=== PATIENT | male | born 1935 | race Caucasian/White ===

== ENCOUNTER 2017-11-01 11:57 | Inpatient (IN) | payer MEDICARE ==
[~2017-11-01] VITALS: Ht 180.3 cm; Wt 75.8 kg
[~2017-11-01 11:57] MED LIST: ATEN100T PO; CAPT50TA3 PO; DIGO50SO2 PO; DILT240C93 PO; FURO20I IM; METF500T4 PO; WARF5 PO
[2017-11-01] MEDS ORDERED: FURO20 PO (12:15)
[2017-11-01] MEDS ORDERED: DIGO125T PO (12:15)
[2017-11-01 12:37] LABS: GLUCOSE,POINT OF CARE 200 MG/DL (70-110)
[2017-11-01] MEDS ORDERED: DILTIAZEM HCL 5 MG/ML 5 ML VIAL IVP ONE (13:00)
[2017-11-01 13:02] LABS: BASOPHILS # (AUTO) 0.07 K/uL (0.00-0.20); EOSINOPHILS # (AUTO) 0.13 K/uL (0.00-0.70); EOSINOPHILS % (AUTO) 1.72 % (1.0-6.0); HEMATOCRIT 39.1 % (41-53); HEMOGLOBIN 12.8 g/dL (13.5-17.5); LYMPHOCYTES # (AUTO) 1.1 K/uL (1.0-4.8); MEAN CORPUSCULAR HEMOGLOBIN 29.4 pg (26.0-34.0); MEAN CORPUSCULAR HGB CONC 32.8 G/dL (31.0-37.0); MEAN CORPUSCULAR VOLUME 90 fL (80-100); MONOCYTES # (AUTO) 0.8 K/uL (0.1-1.0); MONOCYTES % (AUTO) 10.2 % (2.0-9.0); NEUTROPHILS # (AUTO) 5.5 K/uL (1.8-7.7); NEUTROPHILS % (AUTO) 72.1 % (40.0-70.0); PLATELET COUNT (AUTO) 484 K/uL (150-450); RED BLOOD CELL COUNT(AUTO) 4.37 MIL/uL (4.50-5.90); RED CELL DISTRIBUTION WIDTH 16.4 % (11.5-14.5)
[2017-11-01] MEDS ORDERED: COLC0.6T67 PO (13:03)
[2017-11-01] MEDS ORDERED: LISI-662 PO (13:03)
[2017-11-01] MEDS ORDERED: METF500T4 PO (13:03)
[2017-11-01] MEDS ORDERED: VITAD1000 PO (13:03)
[2017-11-01] MEDS ORDERED: CARV3 PO (13:03)
[2017-11-01 13:04] LABS: ANION GAP 6 mmol/L (8-16); CALCIUM, TOTAL 9.1 mg/dL (8.8-10.5); CARBON DIOXIDE 29 mmol/L (22-29); CHLORIDE 101 mmol/L (98-107); CREATININE 1.38 mg/dL (0.60-1.30); GLOMERULAR FILTR. RATE CALC 49 mL/min (>60); GLUCOSE,RANDOM 213 mg/dL (70-110); SODIUM SERUM 136 mmol/L (136-145); UREA NITROGEN, BLOOD 27 mg/dL (7-18)
[2017-11-01 13:10] LABS: INR 3.6 (0.9-1.1)
[2017-11-01 13:18] LABS: ALANINE AMINOTRANSFERASE 32 U/L (12-78); ALBUMIN 3.8 g/dL (3.4-5.0); ALKALINE PHOSPHATASE 127 U/L (46-116); ASPARTATE AMINOTRANSFERASE 29 U/L (15-37); BILIRUBIN,TOTAL 0.7 mg/dL (0.1-1.0); DIGOXIN < 0.20 ng/mL (0.90-2.00); TOTAL PROTEIN, SERUM 7.3 g/dL (6.4-8.2)
[2017-11-01 13:23] LABS: B-TYPE NATRIURETIC PEPTIDE 907 pg/mL (0-100)
[2017-11-01] MEDS ORDERED: FUROSEMIDE 20 MG/2 ML VIAL IVP ONE ×2 (13:45→19:15)
[2017-11-01] MEDS ORDERED: 0.9% SODIUM CHLORIDE 10 ML SYRINGE IVP PRN (14:15)
[2017-11-01] MEDS ORDERED: ACETAMINOPHEN 325 MG TABLET PO PRN (14:15)
[2017-11-01 17:13] VITALS: BP 153/86
[2017-11-01] MEDS ORDERED: WARFARIN SODIUM 5 MG TABLET PO SCH (18:15)
[2017-11-01] MEDS: MetFORMIN HCL 500 MG TABLET PO SCH (18:39)
[2017-11-01] MEDS ORDERED: DEXTROSE 50%-WATER 25 GM/50 ML SYRINGE IVP PRN (19:15)
[2017-11-01 19:36] VITALS: BP 137/91
[2017-11-01] MEDS: CARVEDILOL 3.125 MG TABLET PO SCH (20:25)
[2017-11-01 23:27] VITALS: BP 140/93
[2017-11-02] MEDS ORDERED: AMIODARONE HCL 360 MG in DEXTROSE 5%-WATER 242.8 ML IV ONE ×2 (02:15→03:00)
[2017-11-02] MEDS ORDERED: AMIODARONE HCL 150 MG in DEXTROSE 5%-WATER 97 ML IV ONE (02:45)
[2017-11-02 04:24] VITALS: BP 136/89
[2017-11-02] MEDS: INSULIN ASPART 100 UNITS/ML SQ PRN ×2 (06:24→12:30)
[2017-11-02 07:11] VITALS: BP 118/71
[2017-11-02 07:31] LABS: INR 3.5 (0.9-1.1); PROTHROMBIN TIME 37.1 SEC (9.4-11.6)
[2017-11-02 07:41] LABS: BASOPHILS # (AUTO) 0.05 K/uL (0.00-0.20); BASOPHILS % (AUTO) 0.5 % (0.0-2.0); EOSINOPHILS # (AUTO) 0.03 K/uL (0.00-0.70); EOSINOPHILS % (AUTO) 0.28 % (1.0-6.0); HEMATOCRIT 35.4 % (41-53); LYMPHOCYTES # (AUTO) 0.9 K/uL (1.0-4.8); LYMPHOCYTES % (AUTO) 8.8 % (22.0-44.0); MEAN CORPUSCULAR HEMOGLOBIN 29.4 pg (26.0-34.0); MEAN CORPUSCULAR HGB CONC 33.8 G/dL (31.0-37.0); MEAN CORPUSCULAR VOLUME 87 fL (80-100); MONOCYTES # (AUTO) 0.7 K/uL (0.1-1.0); MONOCYTES % (AUTO) 7.2 % (2.0-9.0); NEUTROPHILS # (AUTO) 8.6 K/uL (1.8-7.7); NEUTROPHILS % (AUTO) 83.3 % (40.0-70.0); PLATELET COUNT (AUTO) 411 K/uL (150-450); RED BLOOD CELL COUNT(AUTO) 4.07 MIL/uL (4.50-5.90)
[2017-11-02] MEDS ORDERED: AMIODARONE HCL 540 MG in DEXTROSE 5%-WATER 239.2 ML IV ONE ×2 (08:15→09:00)
[2017-11-02] MEDS: CARVEDILOL 3.125 MG TABLET PO SCH ×2 (08:22→20:25)
[2017-11-02] MEDS: LISINOPRIL 20 MG TABLET PO SCH (08:22)
[2017-11-02] MEDS: FUROSEMIDE 40 MG/4 ML VIAL IVP SCH ×2 (08:22→20:25)
[2017-11-02] MEDS: CHOLECALCIFEROL (VIT D3) 1,000 UNITS TABLET PO SCH (08:23)
[2017-11-02] MEDS: COLCHICINE 0.6 MG TABLET PO SCH (08:23)
[2017-11-02] MEDS: MetFORMIN HCL 500 MG TABLET PO SCH ×2 (08:23→18:00)
[2017-11-02] MEDS: DILTIAZEM HCL CD 240 MG ER CAPSULE PO SCH (08:26)
[2017-11-02 08:32] LABS: ALBUMIN 3.3 g/dL (3.4-5.0); BILIRUBIN,TOTAL 1.1 mg/dL (0.1-1.0); CALCIUM, TOTAL 8.5 mg/dL (8.8-10.5); CREATININE 1.34 mg/dL (0.60-1.30); TOTAL PROTEIN, SERUM 5.7 g/dL (6.4-8.2)
[2017-11-02 08:40] LABS: POTASSIUM 3.6 mmol/L (3.5-5.1)
[2017-11-02] MEDS ORDERED: FUROSEMIDE 20 MG TABLET PO SCH (09:00)
[2017-11-02 11:15] VITALS: BP 128/71
[2017-11-02] MEDS ORDERED: ACETAMINOPHEN 325 MG TABLET PO PRN (13:15)
[2017-11-02] MEDS ORDERED: PHYTONADIONE 10 MG/1 ML AMP SQ ONE (14:00)
[2017-11-02 15:14] VITALS: BP 126/79
[2017-11-02] MEDS ORDERED: WARFARIN SODIUM 5 MG TABLET PO SCH (17:00)
[2017-11-02 19:46] VITALS: BP 120/81
[2017-11-03 00:08] VITALS: BP 111/78
[2017-11-03] MEDS ORDERED: AMIODARONE HCL 750 MG in DEXTROSE 5%-WATER 485 ML IV SCH (02:11)
[2017-11-03 03:50] VITALS: BP 114/76
[2017-11-03] MEDS: AMIODARONE HCL 750 MG in DEXTROSE 5%-WATER 485 ML IV SCH (03:53)
[2017-11-03 07:01] LABS: INR 2.4 (0.9-1.1); PROTHROMBIN TIME 25.7 SEC (9.4-11.6)
[2017-11-03 07:06] VITALS: BP 129/76
[2017-11-03] MEDS: FUROSEMIDE 40 MG/4 ML VIAL IVP SCH ×2 (09:00)
[2017-11-03 10:02] LABS: GLUCOMETER DEV NAME(LOC) 5N 2R; GLUCOSE,POINT OF CARE 142 MG/DL (70-110)
[2017-11-03 10:03] LABS: GLUCOMETER DEV NAME(LOC) 5N 2R; GLUCOSE,POINT OF CARE 179 MG/DL (70-110)
[2017-11-03] MEDS ORDERED: PHYTONADIONE 10 MG/1 ML AMP SQ ONE (10:45)
[2017-11-03] MEDS: FUROSEMIDE 40 MG TABLET PO SCH ×2 (10:45→19:12)
[2017-11-03 10:49] VITALS: BP 126/86
[2017-11-03 11:16] LABS: CALCIUM, TOTAL 8.7 mg/dL (8.8-10.5); CREATININE 1.57 mg/dL (0.60-1.30); MAGNESIUM 1.4 mg/dL (1.80-2.40); POTASSIUM 3.1 mmol/L (3.5-5.1)
[2017-11-03] MEDS: DILTIAZEM HCL CD 240 MG ER CAPSULE PO SCH (11:54)
[2017-11-03] MEDS: PANTOPRAZOLE SODIUM 40 MG DR TABLET PO SCH (11:55)
[2017-11-03] MEDS: CHOLECALCIFEROL (VIT D3) 1,000 UNITS TABLET PO SCH (11:55)
[2017-11-03] MEDS: COLCHICINE 0.6 MG TABLET PO SCH (11:55)
[2017-11-03] MEDS: LISINOPRIL 20 MG TABLET PO SCH (11:55)
[2017-11-03] MEDS: CARVEDILOL 3.125 MG TABLET PO SCH ×2 (11:55→20:08)
[2017-11-03] MEDS: MetFORMIN HCL 500 MG TABLET PO SCH ×2 (11:56→17:50)
[2017-11-03] MEDS ORDERED: POTASSIUM CHLORIDE 20 MEQ ER TABLET PO ONE (12:30)
[2017-11-03] MEDS ORDERED: MAGNESIUM OXIDE 400 MG TABLET PO ONE (12:30)
[2017-11-03 15:25] VITALS: BP 128/94
[2017-11-03 17:33] LABS: GLUCOMETER DEV NAME(LOC) 5S 1L; GLUCOSE,POINT OF CARE 151 MG/DL (70-110)
[2017-11-03 17:33] LABS: GLUCOMETER DEV NAME(LOC) 5S 1L; GLUCOSE,POINT OF CARE 150 MG/DL (70-110)
[2017-11-03 17:33] LABS: GLUCOMETER DEV NAME(LOC) 5S 1L; GLUCOSE,POINT OF CARE 157 MG/DL (70-110)
[2017-11-03 17:33] LABS: GLUCOMETER DEV NAME(LOC) 5S 1L; GLUCOSE,POINT OF CARE 183 MG/DL (70-110)
[2017-11-03 17:33] LABS: GLUCOMETER DEV NAME(LOC) 5S 1L; GLUCOSE,POINT OF CARE 79 MG/DL (70-110)
[2017-11-03 17:34] LABS: GLUCOMETER DEV NAME(LOC) 5S 1L; GLUCOSE,POINT OF CARE 137 MG/DL (70-110)
[2017-11-03 18:02] LABS: GLUCOMETER DEV NAME(LOC) 5S 1L; GLUCOSE,POINT OF CARE 161 MG/DL (70-110)
[2017-11-03 20:07] VITALS: BP 131/82
[2017-11-04] VITALS (23 sets, daily range): BP systolic 114–160; BP diastolic 67–106
[2017-11-04] MEDS: AMIODARONE HCL 750 MG in DEXTROSE 5%-WATER 485 ML IV SCH (03:29)
[2017-11-04 07:22] LABS: INR 1.5 (0.9-1.1); PROTHROMBIN TIME 15.4 SEC (9.4-11.6)
[2017-11-04 07:24] LABS: MAGNESIUM 1.6 mg/dL (1.80-2.40); POTASSIUM 3.6 mmol/L (3.5-5.1)
[2017-11-04] MEDS ORDERED: SODIUM BICARBONATE 50 MEQ/50 ML VIAL ONE (08:46)
[2017-11-04] MEDS ORDERED: HEPARIN SODIUM 1000 UNITS/NS 1,000 ML ONE (08:46)
[2017-11-04] MEDS ORDERED: IOHEXOL 300 MG/ML 150 ML VIAL ONE (08:46)
[2017-11-04] MEDS ORDERED: LIDOCAINE HCL/PF 1% 30 ML VIAL ONE (08:46)
[2017-11-04] MEDS ORDERED: HEPARIN SODIUM 1000 UNITS/NS 1,000 ML IARTER ONE (09:54)
[2017-11-04] MEDS ORDERED: SODIUM CHLORIDE 0.9% 500 ML IV ONE (09:54)
[2017-11-04] MEDS ORDERED: IOHEXOL 300 MG/ML 150 ML VIAL IARTER ONE (10:00)
[2017-11-04] MEDS ORDERED: LIDOCAINE 1% 30 ML/SOD BICARB 8.4% 4 ML SQ ONE (10:00)
[2017-11-04] MEDS: CHOLECALCIFEROL (VIT D3) 1,000 UNITS TABLET PO SCH (11:27)
[2017-11-04] MEDS: LISINOPRIL 20 MG TABLET PO SCH (11:27)
[2017-11-04] MEDS: PANTOPRAZOLE SODIUM 40 MG DR TABLET PO SCH (11:27)
[2017-11-04] MEDS: COLCHICINE 0.6 MG TABLET PO SCH (11:28)
[2017-11-04] MEDS: INSULIN ASPART 100 UNITS/ML SQ PRN (17:56)
[2017-11-04 19:28] LABS: GLUCOMETER DEV NAME(LOC) 5N 2R; GLUCOSE,POINT OF CARE 195 MG/DL (70-110)
[2017-11-04 19:28] LABS: GLUCOMETER DEV NAME(LOC) 5N 2R; GLUCOSE,POINT OF CARE 170 MG/DL (70-110)
[2017-11-04 20:01] LABS: GLUCOMETER DEV NAME(LOC) 5S 1L; GLUCOSE,POINT OF CARE 211 MG/DL (70-110)
[2017-11-04 20:02] LABS: GLUCOMETER DEV NAME(LOC) 5S 1L; GLUCOSE,POINT OF CARE 224 MG/DL (70-110)
[2017-11-04 20:02] LABS: GLUCOMETER DEV NAME(LOC) 5S 1L; GLUCOSE,POINT OF CARE 167 MG/DL (70-110)
[2017-11-04] MEDS: FUROSEMIDE 40 MG/4 ML VIAL IVP SCH (20:36)
[2017-11-04] MEDS: METOPROLOL TARTRATE 50 MG TABLET PO SCH (20:36)
[2017-11-04] MEDS: TRAVOPROST-Z 0.004% 2.5 ML OPHTHALMIC SOLUTION OU SCH (20:36)
[2017-11-04] MEDS: DORZOLAMIDE/TIMOLOL 2-0.5% [22.3-6.8MG/ML] 10 ML OPHTHALMIC SOLUTION OU SCH (21:00)
[2017-11-05 04:57] VITALS: BP 125/86
[2017-11-05] MEDS: AMIODARONE HCL 750 MG in DEXTROSE 5%-WATER 485 ML IV SCH (05:37)
[2017-11-05] MEDS: INSULIN ASPART 100 UNITS/ML SQ PRN ×4 (06:22→20:24)
[2017-11-05 07:36] VITALS: BP 138/84
[2017-11-05] MEDS: PANTOPRAZOLE SODIUM 40 MG DR TABLET PO SCH (08:23)
[2017-11-05] MEDS: FUROSEMIDE 40 MG/4 ML VIAL IVP SCH (08:23)
[2017-11-05] MEDS: LISINOPRIL 20 MG TABLET PO SCH (08:23)
[2017-11-05] MEDS: COLCHICINE 0.6 MG TABLET PO SCH (08:23)
[2017-11-05] MEDS: CHOLECALCIFEROL (VIT D3) 1,000 UNITS TABLET PO SCH (08:23)
[2017-11-05] MEDS: METOPROLOL TARTRATE 50 MG TABLET PO SCH ×2 (08:23→20:24)
[2017-11-05] MEDS: DORZOLAMIDE/TIMOLOL 2-0.5% [22.3-6.8MG/ML] 10 ML OPHTHALMIC SOLUTION OU SCH (08:44)
[2017-11-05] MEDS: COSOPT OU SCH ×2 (10:26→20:25)
[2017-11-05] MEDS ORDERED: DIGOXIN 250 MCG/ML 2 ML AMP IVP ONE ×2 (10:45→20:00)
[2017-11-05 11:19] VITALS: BP 115/75
[2017-11-05 12:02] LABS: CALCIUM, TOTAL 8.8 mg/dL (8.8-10.5); CREATININE 1.32 mg/dL (0.60-1.30); POTASSIUM 3.2 mmol/L (3.5-5.1)
[2017-11-05] MEDS: AMIODARONE HCL 200 MG TABLET PO SCH ×2 (12:16→20:26)
[2017-11-05] MEDS ORDERED: MAGNESIUM SULFATE 2 GM in DEXTROSE 5%-WATER 50 ML IV ONE (13:15)
[2017-11-05] MEDS ORDERED: POTASSIUM CHLORIDE 20 MEQ ER TABLET PO ONE (13:15)
[2017-11-05] MEDS ORDERED: SODIUM CHLORIDE 0.9% 100 ML ONE (15:32)
[2017-11-05 15:43] VITALS: BP 129/87
[2017-11-05] MEDS: BUMETANIDE 0.25 MG/ML 4 ML VIAL IVP SCH ×2 (15:57→23:40)
[2017-11-05 19:44] VITALS: BP 128/54
[2017-11-05] MEDS: TRAVOPROST-Z 0.004% 2.5 ML OPHTHALMIC SOLUTION OU SCH (20:25)
[2017-11-05 21:47] LABS: GLUCOMETER DEV NAME(LOC) 5S 1L; GLUCOSE,POINT OF CARE 190 MG/DL (70-110)
[2017-11-05 21:48] LABS: GLUCOMETER DEV NAME(LOC) 5S 1L; GLUCOSE,POINT OF CARE 159 MG/DL (70-110)
[2017-11-05 21:48] LABS: GLUCOMETER DEV NAME(LOC) 5S 1L; GLUCOSE,POINT OF CARE 166 MG/DL (70-110)
[2017-11-05 21:48] LABS: GLUCOMETER DEV NAME(LOC) 5S 1L; GLUCOSE,POINT OF CARE 193 MG/DL (70-110)
[2017-11-06] VITALS (8 sets, daily range): BP systolic 115–143; BP diastolic 61–89
[2017-11-06 05:37] LABS: GLUCOMETER DEV NAME(LOC) 5N 2R; GLUCOSE,POINT OF CARE 167 MG/DL (70-110)
[2017-11-06 06:17] LABS: CALCIUM, TOTAL 8.7 mg/dL (8.8-10.5); CREATININE 1.56 mg/dL (0.60-1.30); MAGNESIUM 1.7 mg/dL (1.80-2.40); POTASSIUM 3.5 mmol/L (3.5-5.1)
[2017-11-06] MEDS: INSULIN ASPART 100 UNITS/ML SQ PRN ×2 (06:19→20:47)
[2017-11-06] MEDS: CHOLECALCIFEROL (VIT D3) 1,000 UNITS TABLET PO SCH (09:00)
[2017-11-06] MEDS: COLCHICINE 0.6 MG TABLET PO SCH (09:00)
[2017-11-06] MEDS: LISINOPRIL 20 MG TABLET PO SCH (09:00)
[2017-11-06] MEDS: PANTOPRAZOLE SODIUM 40 MG DR TABLET PO SCH (09:48)
[2017-11-06] MEDS: METOPROLOL TARTRATE 50 MG TABLET PO SCH ×2 (09:48→20:42)
[2017-11-06] MEDS: APIXABAN 2.5 MG TABLET PO SCH ×2 (09:49→20:41)
[2017-11-06] MEDS: AMIODARONE HCL 200 MG TABLET PO SCH ×3 (09:49→20:42)
[2017-11-06] MEDS: COSOPT OU SCH (09:52)
[2017-11-06] MEDS: BUMETANIDE 0.25 MG/ML 4 ML VIAL IVP SCH (10:59)
[2017-11-06 12:27] LABS: GLUCOMETER DEV NAME(LOC) 5S 1L; GLUCOSE,POINT OF CARE 178 MG/DL (70-110)
[2017-11-06] MEDS ORDERED: BENZOCAINE 20% 50 MCG/SPRAY 57 GM ONE (14:35)
[2017-11-06] MEDS ORDERED: BENZOCAINE 20% 50 MCG/SPRAY 57 GM TP ONE (15:00)
[2017-11-06] MEDS ORDERED: AMIODARONE HCL 50 MG/ML 3 ML VIAL ONE (15:16)
[2017-11-06] MEDS ORDERED: AMIODARONE HCL 50 MG/ML 3 ML VIAL IV ONE (15:45)
[2017-11-06] MEDS ORDERED: FLUMAZENIL 0.1 MG/ML 5 ML VIAL IVP ONE ×4 (15:52→16:15)
[2017-11-06] MEDS: TRAVOPROST-Z 0.004% 2.5 ML OPHTHALMIC SOLUTION OU SCH (20:41)
[2017-11-06] MEDS: COSOPT OS SCH (20:41)
[2017-11-07 00:15] VITALS: BP 128/74
[2017-11-07 04:33] VITALS: BP 129/78
[2017-11-07] MEDS ORDERED: FentaNYL CITRATE-PF 100 MCG/2 ML VIAL IVP ONE (05:15)
[2017-11-07] MEDS ORDERED: MIDAZOLAM HCL 2 MG/2 ML VIAL IVP ONE (05:15)
[2017-11-07] MEDS: INSULIN ASPART 100 UNITS/ML SQ PRN ×3 (06:33→20:41)
[2017-11-07 07:04] LABS: FREE T4 (FREE THYROXINE) 1.46 ng/dL (0.76-1.46); THYROID STIMULATING HORMONE 0.4 uIU/mL (0.36-3.74)
[2017-11-07 07:42] VITALS: BP 111/70
[2017-11-07 08:52] LABS: GLUCOMETER DEV NAME(LOC) 5N 2R; GLUCOSE,POINT OF CARE 183 MG/DL (70-110)
[2017-11-07] MEDS: COSOPT OS SCH (09:03)
[2017-11-07] MEDS: METOPROLOL TARTRATE 50 MG TABLET PO SCH ×2 (09:03→20:37)
[2017-11-07] MEDS: APIXABAN 2.5 MG TABLET PO SCH ×2 (09:03→20:37)
[2017-11-07] MEDS: COLCHICINE 0.6 MG TABLET PO SCH (09:03)
[2017-11-07] MEDS: LISINOPRIL 20 MG TABLET PO SCH (09:04)
[2017-11-07] MEDS: PANTOPRAZOLE SODIUM 40 MG DR TABLET PO SCH (09:04)
[2017-11-07] MEDS: AMIODARONE HCL 200 MG TABLET PO SCH ×3 (09:04→20:47)
[2017-11-07] MEDS: CHOLECALCIFEROL (VIT D3) 1,000 UNITS TABLET PO SCH (09:04)
[2017-11-07] MEDS ORDERED: DIGOXIN 250 MCG/ML 2 ML AMP IVP ONE ×3 (10:15→20:30)
[2017-11-07 11:22] LABS: GLUCOMETER DEV NAME(LOC) 5S 1L; GLUCOSE,POINT OF CARE 200 MG/DL (70-110)
[2017-11-07 11:54] VITALS: BP 104/77
[2017-11-07 15:59] VITALS: BP 113/78
[2017-11-07 20:00] VITALS: BP 126/75
[2017-11-07] MEDS: TRAVOPROST-Z 0.004% 2.5 ML OPHTHALMIC SOLUTION OU SCH (20:38)
[2017-11-07] MEDS: DORZOLAMIDE/TIMOLOL/PF 2-0.5% [22.3-6.8MG/ML] 0.2 ML OPHTHALMIC SOLUTION OS SCH (20:40)
[2017-11-08 00:14] VITALS: BP 121/83
[2017-11-08 05:20] VITALS: BP 134/84
[2017-11-08] MEDS: INSULIN ASPART 100 UNITS/ML SQ PRN ×2 (06:32→12:48)
[2017-11-08 07:16] VITALS: BP 130/85
[2017-11-08] MEDS: APIXABAN 2.5 MG TABLET PO SCH (08:23)
[2017-11-08] MEDS: COLCHICINE 0.6 MG TABLET PO SCH (08:23)
[2017-11-08] MEDS: AMIODARONE HCL 200 MG TABLET PO SCH ×2 (08:25→15:53)
[2017-11-08] MEDS: PANTOPRAZOLE SODIUM 40 MG DR TABLET PO SCH (08:25)
[2017-11-08] MEDS: LISINOPRIL 20 MG TABLET PO SCH (08:26)
[2017-11-08] MEDS: CHOLECALCIFEROL (VIT D3) 1,000 UNITS TABLET PO SCH (08:26)
[2017-11-08] MEDS: DORZOLAMIDE/TIMOLOL/PF 2-0.5% [22.3-6.8MG/ML] 0.2 ML OPHTHALMIC SOLUTION OS SCH (08:27)
[2017-11-08] MEDS ORDERED: FUROSEMIDE 40 MG TABLET PO SCH (09:00)
[2017-11-08] MEDS ORDERED: DIGOXIN 125 MCG TABLET PO SCH (09:00)
[2017-11-08 11:40] VITALS: BP 118/68
[2017-11-08] MEDS: METOPROLOL TARTRATE 50 MG TABLET PO SCH ×2 (11:58→15:53)
[2017-11-08] MEDS ORDERED: FURO40 PO (15:30)
[2017-11-08] MEDS ORDERED: GLIP5 PO (15:31)
[2017-11-08] MEDS ORDERED: APIX2.5T PO (15:32)
[2017-11-08] MEDS ORDERED: METO50 PO (15:32)
[2017-11-08] MEDS ORDERED: AMIO200T44 PO (15:32)
[2017-11-08] MEDS ORDERED: KDUR10 PO (15:33)
[2017-11-08] MEDS ORDERED: DIGO125T PO (15:33)
[2017-11-08 15:55] VITALS: BP 130/71
[2017-11-08 22:38] LABS: GLUCOMETER DEV NAME(LOC) 5S 2N; GLUCOSE,POINT OF CARE 137 MG/DL (70-110)
[2017-11-08 22:38] LABS: GLUCOMETER DEV NAME(LOC) 5S 2N; GLUCOSE,POINT OF CARE 173 MG/DL (70-110)
[2017-11-08 22:38] LABS: GLUCOMETER DEV NAME(LOC) 5S 2N; GLUCOSE,POINT OF CARE 196 MG/DL (70-110)
[2017-11-09 05:18] LABS: GLUCOMETER DEV NAME(LOC) 5S 1L; GLUCOSE,POINT OF CARE 174 MG/DL (70-110)
[2017-11-09 05:18] LABS: GLUCOMETER DEV NAME(LOC) 5S 1L; GLUCOSE,POINT OF CARE 164 MG/DL (70-110)
== END 2017-11-08 16:00 | disposition home or self-care (01) | DRG 286 ==
LOC: EMS 12:00 → 5N 14:41
PROVIDERS: ADMIT Hospitalist; ATTEND Hospitalist
PROC: 4A023N8 Measurement of Cardiac Sampling and Pressure, Bilateral, Percutaneous Approach (ICD-10-PCS; principal; 2017-11-04)
PROC: B211YZZ Fluoroscopy of Multiple Coronary Arteries using Other Contrast (ICD-10-PCS; 2017-11-04)
PROC: B41FYZZ Fluoroscopy of Right Lower Extremity Arteries using Other Contrast (ICD-10-PCS; 2017-11-04)
DX: I48.91 Unspecified atrial fibrillation (principal); I50.21 Acute systolic (congestive) heart failure; I42.9 Cardiomyopathy, unspecified; E11.9 Type 2 diabetes mellitus without complications; I80.8 Phlebitis and thrombophlebitis of other sites; I11.0 Hypertensive heart disease with heart failure; Z82.49 Family history of ischemic heart disease and other diseases of the circulatory system; Z88.0 Allergy status to penicillin; Z79.01 Long term (current) use of anticoagulants; Z79.84 Long term (current) use of oral hypoglycemic drugs; Z79.899 Other long term (current) drug therapy
CPT/HCPCS: 82962; 83735; 84132; 84436; 84439; 84443; 92960; 93005; 93306; 93312; 93460; 93971; 96374; 96375; 99291; J0282; J1160; J1644; J1940; J2250; J3010; J3430; J3475; J3490; J7050; J7060; Q9967

== ENCOUNTER 2017-12-19 04:11 | Emergency (ER) | payer MEDICARE ==
[~2017-12-19] VITALS: Ht 180.3 cm; Wt 70.5 kg
[~2017-12-19 04:11] MED LIST changes: +AMIO200T44 PO; +APIX2.5T PO; -ATEN100T PO; -CAPT50TA3 PO; +COLC0.6T67 PO; +DIGO-44 PO; -DIGO50SO2 PO; -DILT240C93 PO; -FURO20I IM; +FURO40 PO; +GLIP5 PO; +KDUR10 PO; +LISI-662 PO; -METF500T4 PO; +METO50 PO; +VITAD1000 PO; -WARF5 PO
[2017-12-19] MEDS ORDERED: AMIO200T44 PO (04:22)
[2017-12-19] MEDS ORDERED: METO50 PO (04:22)
[2017-12-19 05:53] VITALS: BP 138/86
[2017-12-19] MEDS ORDERED: ACETAMINOPHEN 325 MG TABLET PO ONE (06:00)
[2017-12-19] MEDS ORDERED: IBUPROFEN 600 MG TABLET PO ONE (06:00)
== END 2017-12-19 05:57 | disposition home or self-care (01) ==
LOC: EMS 04:12
DX: S20.212A Contusion of left front wall of thorax, initial encounter (principal); I11.0 Hypertensive heart disease with heart failure; I50.9 Heart failure, unspecified; E11.9 Type 2 diabetes mellitus without complications; Z88.0 Allergy status to penicillin; W19.XXXA Unspecified fall, initial encounter; Y93.89 Activity, other specified; Y92.89 Other specified places as the place of occurrence of the external cause; Y99.8 Other external cause status
CPT/HCPCS: 82962; 99283

== ENCOUNTER 2018-06-26 10:58 | Inpatient (IN) | payer MEDICARE ==
[~2018-06-26] VITALS: Ht 180.3 cm; Wt 67.9 kg
[2018-06-26 12:11] LABS: BASOPHILS % (AUTO) 0.5 % (0.0-2.0); EOSINOPHILS % (AUTO) 0 % (1.0-6.0); HEMATOCRIT 40.3 % (41-53); HEMOGLOBIN 13.4 g/dL (13.5-17.5); LYMPHOCYTES # (AUTO) 0.6 K/uL (1.0-4.8); LYMPHOCYTES % (AUTO) 5.9 % (22.0-44.0); MEAN CORPUSCULAR HEMOGLOBIN 29.6 pg (26.0-34.0); MEAN CORPUSCULAR HGB CONC 33.3 G/dL (31.0-37.0); MEAN CORPUSCULAR VOLUME 89 fL (80-100); MONOCYTES # (AUTO) 0.9 K/uL (0.1-1.0); NEUTROPHILS # (AUTO) 8.5 K/uL (1.8-7.7); NEUTROPHILS % (AUTO) 84.6 % (40.0-70.0); PLATELET COUNT (AUTO) 397 K/uL (150-450); RED BLOOD CELL COUNT(AUTO) 4.53 MIL/uL (4.50-5.90); RED CELL DISTRIBUTION WIDTH 15.3 % (11.5-14.5)
[2018-06-26 12:25] LABS: CALCIUM, TOTAL 8.8 mg/dL (8.8-10.5); CREATININE 2.11 mg/dL (0.60-1.30); POTASSIUM 4.5 mmol/L (3.5-5.1)
[2018-06-26 12:31] LABS: ALBUMIN 3.3 g/dL (3.4-5.0); BILIRUBIN,TOTAL 1.1 mg/dL (0.1-1.0); TOTAL PROTEIN, SERUM 6.5 g/dL (6.4-8.2)
[2018-06-26] MEDS ORDERED: INDOMETHACIN 25 MG CAPSULE PO ONE (13:00)
[2018-06-26] MEDS ORDERED: DILTIAZEM HCL 5 MG/ML 5 ML VIAL IVP ONE (13:30)
[2018-06-26] MEDS ORDERED: DEXTROSE 50%-WATER 25 GM/50 ML SYRINGE IVP PRN (15:15)
[2018-06-26 15:36] VITALS: BP 135/70
[2018-06-26 19:38] VITALS: BP 105/50
[2018-06-26] MEDS ORDERED: BISACODYL 10 MG RECTAL RECTAL SUPPOSITORY PR PRN (20:15)
[2018-06-26] MEDS ORDERED: ACETAMINOPHEN 325 MG TABLET PO PRN (20:15)
[2018-06-26] MEDS ORDERED: OxyCODONE HCL/ACETAMINOPHEN 5-325 MG TABLET PO PRN (20:15)
[2018-06-26] MEDS ORDERED: ALBUTEROL SULFATE 2.5 MG/0.5 ML NEB SOLUTION NEB PRN (20:15)
[2018-06-26] MEDS: METOPROLOL TARTRATE 50 MG TABLET PO SCH (21:00)
[2018-06-26] MEDS: APIXABAN 2.5 MG TABLET PO SCH (21:53)
[2018-06-26] MEDS: DOCUSATE SODIUM 100 MG CAPSULE PO SCH (21:53)
[2018-06-26] MEDS: PredniSONE 10 MG TABLET PO SCH (21:53)
[2018-06-26] MEDS: INSULIN LISPRO 100 UNITS/ML SQ PRN (21:54)
[2018-06-26 23:17] VITALS: BP 104/70
[2018-06-26 23:38] LABS: GLUCOMETER DEV NAME(LOC) 5S 1M; GLUCOSE,POINT OF CARE 168 MG/DL (70-110)
[2018-06-27 03:36] VITALS: BP 116/83
[2018-06-27] MEDS: INSULIN LISPRO 100 UNITS/ML SQ PRN ×4 (05:55→21:54)
[2018-06-27 07:04] LABS: CALCIUM, TOTAL 8.8 mg/dL (8.8-10.5); CREATININE 1.82 mg/dL (0.60-1.30); POTASSIUM 4.3 mmol/L (3.5-5.1)
[2018-06-27 07:29] VITALS: BP 129/77
[2018-06-27] MEDS ORDERED: DIGOXIN 125 MCG TABLET PO SCH (08:00)
[2018-06-27] MEDS: APIXABAN 2.5 MG TABLET PO SCH ×2 (08:23→21:53)
[2018-06-27] MEDS: METOPROLOL TARTRATE 50 MG TABLET PO SCH (08:23)
[2018-06-27] MEDS: FUROSEMIDE 40 MG TABLET PO SCH (08:23)
[2018-06-27] MEDS: PANTOPRAZOLE SODIUM 40 MG DR TABLET PO SCH (08:23)
[2018-06-27] MEDS: PredniSONE 10 MG TABLET PO SCH (08:23)
[2018-06-27] MEDS: DOCUSATE SODIUM 100 MG CAPSULE PO SCH ×2 (08:23→21:53)
[2018-06-27] MEDS: AMIODARONE HCL 200 MG TABLET PO SCH ×2 (09:16→21:53)
[2018-06-27 11:13] VITALS: BP 124/68
[2018-06-27] MEDS ORDERED: METOPROLOL SUCCINATE 50 MG ER TABLET PO ONE (14:15)
[2018-06-27 14:29] LABS: GLUCOMETER DEV NAME(LOC) 5S 2Q; GLUCOSE,POINT OF CARE 144 MG/DL (70-110)
[2018-06-27 14:29] LABS: GLUCOMETER DEV NAME(LOC) 5S 2Q; GLUCOSE,POINT OF CARE 275 MG/DL (70-110)
[2018-06-27 15:52] VITALS: BP 112/63
[2018-06-27 19:48] VITALS: BP 113/75
[2018-06-27 22:09] LABS: GLUCOMETER DEV NAME(LOC) 5S 1M; GLUCOSE,POINT OF CARE 203 MG/DL (70-110)
[2018-06-28 00:33] VITALS: BP 121/90
[2018-06-28 04:43] VITALS: BP 126/86
[2018-06-28 05:24] LABS: GLUCOMETER DEV NAME(LOC) 5S 2Q; GLUCOSE,POINT OF CARE 215 MG/DL (70-110)
[2018-06-28 06:08] LABS: BASOPHILS % (AUTO) 0.8 % (0.0-2.0); EOSINOPHILS % (AUTO) 1.5 % (1.0-6.0); HEMATOCRIT 37.5 % (41-53); HEMOGLOBIN 12.7 g/dL (13.5-17.5); LYMPHOCYTES # (AUTO) 1.3 K/uL (1.0-4.8); LYMPHOCYTES % (AUTO) 12.8 % (22.0-44.0); MEAN CORPUSCULAR HEMOGLOBIN 29.4 pg (26.0-34.0); MEAN CORPUSCULAR VOLUME 87 fL (80-100); MONOCYTES # (AUTO) 0.7 K/uL (0.1-1.0); MONOCYTES % (AUTO) 7.4 % (2.0-9.0); NEUTROPHILS # (AUTO) 7.8 K/uL (1.8-7.7); NEUTROPHILS % (AUTO) 77.5 % (40.0-70.0); PLATELET COUNT (AUTO) 400 K/uL (150-450); RED BLOOD CELL COUNT(AUTO) 4.34 MIL/uL (4.50-5.90); RED CELL DISTRIBUTION WIDTH 15.3 % (11.5-14.5)
[2018-06-28 07:27] LABS: ALBUMIN 2.7 g/dL (3.4-5.0); BILIRUBIN,TOTAL 0.6 mg/dL (0.1-1.0); CALCIUM, TOTAL 8.6 mg/dL (8.8-10.5); CREATININE 1.85 mg/dL (0.60-1.30); DIGOXIN 0.49 ng/mL (0.90-2.00); POTASSIUM 3.8 mmol/L (3.5-5.1); TOTAL PROTEIN, SERUM 5.4 g/dL (6.4-8.2)
[2018-06-28 07:37] VITALS: BP 131/74
[2018-06-28] MEDS: PredniSONE 10 MG TABLET PO SCH (09:14)
[2018-06-28] MEDS: FUROSEMIDE 40 MG TABLET PO SCH (09:14)
[2018-06-28] MEDS: PANTOPRAZOLE SODIUM 40 MG DR TABLET PO SCH (09:14)
[2018-06-28] MEDS: APIXABAN 2.5 MG TABLET PO SCH ×2 (09:14→20:31)
[2018-06-28] MEDS: AMIODARONE HCL 200 MG TABLET PO SCH ×2 (09:15→20:31)
[2018-06-28] MEDS: DIGOXIN 125 MCG TABLET PO SCH (09:15)
[2018-06-28] MEDS: DOCUSATE SODIUM 100 MG CAPSULE PO SCH ×2 (09:15→20:31)
[2018-06-28 11:12] VITALS: BP 121/72
[2018-06-28] MEDS: INSULIN LISPRO 100 UNITS/ML SQ PRN ×3 (12:25→21:06)
[2018-06-28] MEDS: METOPROLOL SUCCINATE 50 MG ER TABLET PO SCH (14:43)
[2018-06-28 19:32] VITALS: BP 141/84
[2018-06-29 00:15] VITALS: BP 138/85
[2018-06-29 04:48] VITALS: BP 126/88
[2018-06-29 06:00] LABS: GLUCOMETER DEV NAME(LOC) 5S 1M; GLUCOSE,POINT OF CARE 128 MG/DL (70-110)
[2018-06-29 06:00] LABS: GLUCOMETER DEV NAME(LOC) 5S 1M; GLUCOSE,POINT OF CARE 170 MG/DL (70-110)
[2018-06-29 06:00] LABS: GLUCOMETER DEV NAME(LOC) 5S 2Q; GLUCOSE,POINT OF CARE 184 MG/DL (70-110)
[2018-06-29 06:00] LABS: GLUCOMETER DEV NAME(LOC) 5S 2Q; GLUCOSE,POINT OF CARE 179 MG/DL (70-110)
[2018-06-29 06:32] LABS: CALCIUM, TOTAL 8.9 mg/dL (8.8-10.5); CREATININE 1.86 mg/dL (0.60-1.30); POTASSIUM 3.9 mmol/L (3.5-5.1)
[2018-06-29 07:24] VITALS: BP 145/76
[2018-06-29] MEDS: DOCUSATE SODIUM 100 MG CAPSULE PO SCH ×2 (08:45→20:33)
[2018-06-29] MEDS: PredniSONE 10 MG TABLET PO SCH (08:45)
[2018-06-29] MEDS: AMIODARONE HCL 200 MG TABLET PO SCH ×2 (08:45→20:33)
[2018-06-29] MEDS: METOPROLOL SUCCINATE 50 MG ER TABLET PO SCH (08:45)
[2018-06-29] MEDS: PANTOPRAZOLE SODIUM 40 MG DR TABLET PO SCH (08:45)
[2018-06-29] MEDS: APIXABAN 2.5 MG TABLET PO SCH ×2 (08:45→20:33)
[2018-06-29] MEDS: FUROSEMIDE 40 MG TABLET PO SCH (08:46)
[2018-06-29 11:22] VITALS: BP 127/84
[2018-06-29] MEDS: INSULIN LISPRO 100 UNITS/ML SQ PRN ×3 (11:53→20:40)
[2018-06-29 15:59] VITALS: BP 114/85
[2018-06-29 19:35] VITALS: BP 115/81
[2018-06-29 22:04] LABS: GLUCOMETER DEV NAME(LOC) 5S 2Q; GLUCOSE,POINT OF CARE 227 MG/DL (70-110)
[2018-06-29 22:04] LABS: GLUCOMETER DEV NAME(LOC) 5S 2Q; GLUCOSE,POINT OF CARE 184 MG/DL (70-110)
[2018-06-29 22:04] LABS: GLUCOMETER DEV NAME(LOC) 5S 2Q; GLUCOSE,POINT OF CARE 264 MG/DL (70-110)
[2018-06-29 22:15] LABS: GLUCOMETER DEV NAME(LOC) 5S 1M; GLUCOSE,POINT OF CARE 134 MG/DL (70-110)
[2018-06-30 00:22] VITALS: BP 132/84
[2018-06-30 04:50] VITALS: BP 140/94
[2018-06-30] MEDS: INSULIN LISPRO 100 UNITS/ML SQ PRN ×2 (05:44→12:09)
[2018-06-30 07:23] LABS: FREE T4 (FREE THYROXINE) 1.12 ng/dL (0.76-1.46); THYROID STIMULATING HORMONE 0.05 uIU/mL (0.36-3.74)
[2018-06-30 07:39] VITALS: BP 139/67
[2018-06-30] MEDS: PANTOPRAZOLE SODIUM 40 MG DR TABLET PO SCH (08:18)
[2018-06-30] MEDS: DIGOXIN 125 MCG TABLET PO SCH (08:18)
[2018-06-30] MEDS: DOCUSATE SODIUM 100 MG CAPSULE PO SCH (08:18)
[2018-06-30] MEDS: FUROSEMIDE 40 MG TABLET PO SCH (08:18)
[2018-06-30] MEDS: AMIODARONE HCL 200 MG TABLET PO SCH (08:18)
[2018-06-30] MEDS: METOPROLOL SUCCINATE 50 MG ER TABLET PO SCH (08:18)
[2018-06-30] MEDS: APIXABAN 2.5 MG TABLET PO SCH (08:19)
[2018-06-30 11:03] VITALS: BP 122/69
[2018-06-30] MEDS ORDERED: AMIO200T44 PO (14:36)
[2018-06-30 21:25] LABS: GLUCOMETER DEV NAME(LOC) 5S 1M; GLUCOSE,POINT OF CARE 179 MG/DL (70-110)
[2018-06-30 21:25] LABS: GLUCOMETER DEV NAME(LOC) 5S 2Q; GLUCOSE,POINT OF CARE 114 MG/DL (70-110)
== END 2018-06-30 15:10 | disposition home or self-care (01) | DRG 291 ==
LOC: EMS 10:59 → 5S 13:42
PROVIDERS: ADMIT Internal Medicine; ATTEND Internal Medicine
DX: I13.0 Hypertensive heart and chronic kidney disease with heart failure and stage 1 through stage 4 chronic kidney disease, or unspecified chronic kidney disease (principal); I50.23 Acute on chronic systolic (congestive) heart failure; N17.9 Acute kidney failure, unspecified; I48.91 Unspecified atrial fibrillation; M10.9 Gout, unspecified; I42.9 Cardiomyopathy, unspecified; N18.3 Chronic kidney disease, stage 3 (moderate); I49.5 Sick sinus syndrome; Z83.3 Family history of diabetes mellitus; Z82.49 Family history of ischemic heart disease and other diseases of the circulatory system; I25.10 Atherosclerotic heart disease of native coronary artery without angina pectoris; E78.5 Hyperlipidemia, unspecified; E11.22 Type 2 diabetes mellitus with diabetic chronic kidney disease; I48.2 Chronic atrial fibrillation; M10.072 Idiopathic gout, left ankle and foot; Z79.01 Long term (current) use of anticoagulants; Z79.899 Other long term (current) drug therapy
CPT/HCPCS: 84439; 84443; 84481; 93005; 93306; 93970; 96374; 99285; J3490